=== PATIENT | male | born 1980 | race African-American/Black ===

== ENCOUNTER 2019-12-21 09:44 | Emergency (ER) | payer OTHER, SELFPAY ==
--- NOTE | ~2019-12-21 | XR_ITS ---
EXAMINATION: XR chest 1V portable INDICATION: Right-sided chest pain TECHNIQUE: Portable AP chest at 1012 hours COMPARISON: None available FINDINGS: The lungs are free of acute opacities. There is no pleural effusion or pneumothorax. The ca rdiomediastinal silhouette is normal. IMPRESSION: 1. No acute cardiopulmonary abnormality. Reviewed, dictated and finalized at location A.
--- NOTE | ~2019-12-21 | CT_ITS ---
EXAMINATION: CTA chest PE protocol DATE: 12/21/2019 11:28 INDICATION: Chest pain. Shortness of breath. TECHNIQUE: Computed tomography angiography (CTA) of the chest was performed with 100 mL Omnipaque-350 intravenous contrast timed to evaluate the pulmonary arteries. Coronal maximum intensity projection 3D-reconstructions were created by the technologist. Automated exposure control and iterative reconst ruction technique were employed. The dose-length product was 1099.92 mGy-cm. COMPARISON: None. FINDINGS: There are mild patchy peripheral groundglass and airspace opacities in all lobes with a low er lung predominance. There is a pneumatocele in right lower lobe. No pleural effusion. The heart siz e is normal. No pericardial effusion. There is no pulmonary embolus. There is mild mediastinal and ri ght hilar lymphadenopathy. There is diffuse hepatic steatosis. There is mild thoracic spondylosis. IMPRESSION: 1. No pulmonary embolus. 2. Mild multifocal lung disease, likely atypical pneumonia such as COVID-19 pneumonia. 3. Mild mediastinal and right hilar lymphadenopathy, likely reactive. Reviewed, dictated and finalized at location A. IMPRESSION: 1. No pulmonary embolus. 2. Mild multifocal lung disease, likely atypical pneumonia such as COVID-19 pne umonia. 3. Mild mediastinal and right hilar lymphadenopathy, likely reactive.
--- NOTE | 2019-12-21 09:54 | ECG_ITS ---
Measurements Intervals [place] Rate: 84 P: 48 AK: 151 QRS: 13 QRSD: 81 T: 38 QT: 373 QTc: 441 Interpretive Statements SINUS RHYTHM BASELINE ARTIFACT- II, III, AVR, AVF NORMAL ECG Electronically Signed On 12-21-2019 11:00:38 CDT by Jesus Walker D.O.
[2019-12-21 09:55] VITALS: BP 154/80; PULSE 89; RESP 21; TEMP 36.8; O2SAT 98
[2019-12-21 09:57] VITALS: PULSE 88
[2019-12-21] MEDS: ASPIRIN 81 MG CHEWABLE TABLET 324 MG PO (10:14)
[2019-12-21 10:20] LABS: Basophils Percent Auto 0.5 % (0.2-1.2); Eosinophils Absolute Auto 0.1 K/mm3 (0-0.3); Eosinophils Percent Auto 0.7 % (0-4.4); Hematocrit 38.1 % (42.0-52.0); Hemoglobin 12.4 g/dL (14.0-18.0); Immature Granulocyte Absolute 0.03 K/mm3 (0.00-0.031); Immature Granulocyte Percent A 0.4 % (0-0.5); Lymphocytes Absolute Auto 2.92 K/mm3 (0.9-3.2); Lymphocytes Percent Auto 34.1 % (18.3-44.2); Mean Corpuscular HGB Conc 32.5 g/dl (32-36); Mean Corpuscular Hemoglobin 29.2 pg (26-34); Mean Corpuscular Volume 89.9 fl (80-100); Mean Platelet Volume 9.5 fl (7.4-10.4); Monocytes Absolute Auto 0.5 K/mm3 (0.1-0.6); Monocytes Percent Auto 5.8 % (2.6-8.5); Neutrophils Percent Auto 58.5 % (45.5-73.1); Platelet Count Result 336 k/mm3 (150-375); Red Blood Count 4.24 M/mm3 (4.6-6.20); Red Cell Distribution Width 14.8 % (11.5-14.5); White Blood Count 8.6 K/mm3 (4.5-10.0)
[2019-12-21 10:36] LABS: Partial Thromboplastin Time 31.8 SECONDS (22.3-36.8)
[2019-12-21 10:37] LABS: Anion Gap 7 mmol/L (8-16); Blood Urea Nitrogen 10 mg/dL (9-20); Calcium 8.6 mg/dL (8.4-10.2); Carbon Dioxide 29 mmol/L (22-30); Chloride 105 mmol/L (98-107); Estimated CRCL calculation 131 ml/min; Estimated Glomerular Filt Rate > 60; Glucose 103 mg/dL (75-110); Potassium 3.6 mmol/L (3.4-5.0); Sodium 141 mmol/L (137-145)
[2019-12-21 10:38] LABS: D Dimer 0.67 ug/mL (<0.48)
[2019-12-21 10:49] LABS: Troponin I < 0.012 ng/mL (0.000-0.034)
[2019-12-21 10:57] VITALS: BP 125/79; PULSE 79; RESP 18; O2SAT 98
--- NOTE | 2019-12-21 11:39 | ED.CHESTPAIN ---
HPI - Chest Pain General Chief Complaint: Chest Pain Stated Complaint: chest pain Time Seen by Provider: 12/21/19 10:04 Source: patient Mode of arrival: ambulatory Limitations: no limitations History of Present Illness HPI narrative: Patient is a 39-year-old male who presents with right-sided chest pain and slight dyspnea for the last 2 days patient denies any recent URI symptoms or similar occurrence in the past notes he had felt fine prior to onset of symptoms which have remained constant since the beginning 2 days ago pain does not radiate worse with breathing. Patient notes he has been noncompliant with his lisinopril Related Data Allergies Allergy/AdvReac Type Severity Reaction Status Date / Time No Known Allergies Allergy Verified 12/21/19 10:14 Review of Systems Review of Systems: All systems reviewed & are unremarkable except as noted in HPI and below PMFSH Past Medical History Medical History (Updated 12/21/19 @ 12:42 by Jose Alejandro Wynn PA-C) Hypertension Social History Social History (Updated 12/21/19 @ 11:40 by Jose Alejandro Wynn PA-C) Smoking status: Former smoker Exam Narrative: Exam Narrative: GENERAL: Well-appearing, obese, and in no acute distress. HEAD: Normocephalic, atraumatic. EYES: PERRLA and EOMI. ENT: Nares clear, no rhinorrhea or epistaxis. Mucous membranes moist. Oropharynx without tonsillar hypertrophy exudate or other lesions. NECK: Supple. No adenopathy or masses. No carotid bruits or JVD CHEST: Clear to auscultation. No respiratory distress. No wheezes rales or rhonchi HEART: Regular rate and rhythm. No murmur heard. Normal peripheral pulses. ABDOMEN: Soft, nontender, distended EXTREMITIES: Normal range of motion. No edema. SKIN: Warm, dry, no rash. NEURO: No focal deficits. Alert and oriented x3. Cranial nerves II through XII grossly intact PSYCH: Normal mood and affect. Course Course Emergency Course: Patient's symptoms after evaluation potentially attributable to COVID-19 patient with normal vital signs no hypoxemia nontoxic-appearing will follow with primary care and be managed accordingly no other high risk changes in the blood work or imaging Reevaluation(s) Reevaluation #1: Discussed case with primary care who will follow patient in clinic Date: 12/21/19 Time: 12:41 Vital Signs Vital signs: Vital Signs Temperature 98.2 F 12/21/19 09:55 Pulse Rate 89 12/21/19 09:55 Respiratory Rate 21 H 12/21/19 09:55 Blood Pressure 154/80 H 12/21/19 09:55 Pulse Oximetry 98 12/21/19 09:55 Temperature 98.2 F 12/21/19 09:55 Pulse Rate 78 12/21/19 12:39 Respiratory Rate 18 12/21/19 12:39 Blood Pressure 137/87 12/21/19 12:39 Pulse Oximetry 100 12/21/19 12:39 MDM - Chest Pain Lab Data Result diagrams: 12/21/19 10:09 12/21/19 10:09 Labs: Lab Results 12/21/19 12/21/19 12/21/19 Range/Units 10:09 10:09 10:09 WBC 8.6 (4.5-10.0) K/mm3 RBC 4.24 L (4.6-6.20) M/mm3 Hgb 12.4 L (14.0-18.0) g/dL Hct 38.1 L (42.0-52.0) % MCV 89.9 (80-100) fl MCH 29.2 (26-34) pg MCHC 32.5 (32-36) g/dl RDW 14.8 H (11.5-14.5) % Plt Count 336 (150-375) k/mm3 MPV 9.5 (7.4-10.4) fl Immature Gran % (Auto) 0.4 (0-0.5) % Neut % (Auto) 58.5 (45.5-73.1) % Lymph % (Auto) 34.1 (18.3-44.2) % [place] % (Auto) 5.8 (2.6-8.5) % Eos % (Auto) 0.7 (0-4.4) % Baso % (Auto) 0.5 (0.2-1.2) % Lymph # (Auto) 2.92 (0.9-3.2) K/mm3 [place] # (Auto) 0.5 (0.1-0.6) K/mm3 Eos # (Auto) 0.1 (0-0.3) K/mm3 Baso # (Auto) 0.0 (0.0-0.1) K/mm3 Abs Immat Gran (auto) 0.03 (0.00-0.031) K/mm3 Absolute Neuts (auto) 5.0 (1.3-6.7) K/mm3 Absolute Nucleated RBC 0.0 (0.0-0.012) K/mm3 Nucleated RBC % 0.0 (0.0-0.2) % PT 13.0 (11.1-14.7) Seconds INR 1.0 APTT 31.8 (22.3-36.8) SECONDS D-Dimer 0.67 H (<0.48) ug/mL Sodium 141 (137-145) mmol/L [place]
[2019-12-21 12:39] VITALS: BP 137/87; PULSE 78; RESP 18; O2SAT 100
[2019-12-21 21:12] LABS: SARS-CoV-2 RNA PCR Negative
== END 2019-12-21 13:01 | disposition home or self-care (01) ==
PROVIDERS: Emergency Medicine Emergency Medical Services; Emergency Provider Emergency Medicine; PCP Family Medicine
DX: R07.9 Chest pain, unspecified (principal); Z20.828 Contact with and (suspected) exposure to other viral communicable diseases; Z87.891 Personal history of nicotine dependence; I10 Essential (primary) hypertension
CPT/HCPCS: 36415; 71045; 71275; 80048; 84484; 85025; 85380; 85610; 85730; 87635; 93005; 99284; A9270; C9803; Q9967; U0003

== ENCOUNTER 2022-02-23 06:00 | Emergency (ER) | payer OTHER, SELFPAY ==
--- NOTE | ~2022-02-23 | CT_ITS ---
Non-contrast CT scan of the Abdomen and Pelvis Clinical indication: Left flank pain, hematuria Technique: 5 mm axial scans were obtained through the abdomen and pelvis without intravenous or oral contrast. Dose reduction technique was used on this scan by utilizing automated exposure control and iterative reconstruction technique. The dose-length product (DLP) was 1278.75 mGy-cm. Findings: Images through the lung bases reveal no abnormalities. There is no evidence of renal or ureteral calculi. The kidneys and the ureters are nondilated. Small left renal cyst noted. The liver, spleen, pancreas, gallbladder, and adrenals appear normal. There is no aortic aneurysm. There is no evidence of bowel obstruction. Normal appendix. Images through the pelvis were performed. There is no evidence of ascites or lymphadenopathy. Urinary bladder unremarkable. No pelvic mass seen. Impression: Unremarkable exam. Reviewed, dictated and finalized at location [] K TRANSFER CLERK Impression: Unremarkable exam.
[2022-02-23 06:01] VITALS: BP 137/88; PULSE 107; RESP 20; TEMP 37; O2SAT 100
--- NOTE | 2022-02-23 08:09 | ED.GENADULT ---
HPI - General Adult General Chief complaint: Back Pain/Injury Stated complaint: back pain Time Seen by Provider: 02/23/22 07:56 History of Present Illness HPI narrative: 41-year-old male presented to the emergency department for evaluation of left flank pain that radiates up into his left shoulder. Patient states he has had some hematuria intermittently since September. Patient denies concern for STIs but states he is having some burning with urination. Patient states he did have follow-up with his primary care physician but was unsure what the lab shows. Patient denies any pain with urination. Patient reports last year he did have some biopsies done to rule out cancer and he thinks the results were negative. Patient does take lisinopril for blood pressure. Related Data Allergies Allergy/AdvReac Type Severity Reaction Status Date / Time No Known Allergies Allergy Verified 12/21/19 10:14 Review of Systems Review of Systems: CONSTITUTIONAL: Denies fever, chills, or sweats. EYES: Denies visual changes, redness, or discharge. ENT: Denies rhinorrhea, congestion, sore throat, or otalgia. CARDIOVASCULAR: Denies chest pain, palpitations, or edema. RESPIRATORY: Denies cough or dyspnea. GASTROINTESTINAL: See HPI GENITOURINARY: See HPI SKIN: Denies rash or itching. MUSCULOSKELETAL: Denies back pain, joint pain, or myalgia. NEUROLOGIC: Denies headache, numbness, or weakness. [facility] Past Medical History Medical History (Updated 02/23/22 @ 09:48 by Charles Hazel MD) Hypertension Social History Social History (Updated 12/21/19 @ 11:40 by Jose Alejandro Wynn, PA-C) Smoking status: Former smoker Exam Narrative: APPEARANCE: Well appearing, no pain, no distress, well-nourished. HEAD: normocephalic, atraumatic. EYES: PERRLA/EOMI, conjunctivae clear. NOSE: Normal no drainage EARS:TMS clear with good light reflex. THROAT: Pharynx clear, no exudate. NECK: Supple. No adenopathy, no masses. RESPIRATORY: Airway patent, respirations nonlabored. Clear to auscultation bilaterally, no rales, rhonchi, wheezing. CARDIOVASCULAR: Regular rate and rhythm without murmurs rubs or gallops. ABDOMINAL: Left upper quadrant tenderness to palpation, left CVA tenderness to palpation MUSCULOSKELETAL: Moves all extremities. Strength/ROM intact, No edema, No calf tenderness. NEURO: Alert. Cranial nerves II through XII intact. Grossly intact SKIN: Warm, dry. Normal Color Course Course Emergency Course: Patient is afebrile but does have a leukocytosis of 16.2. Patient does have high bacteria mucus and red blood cells in his urine. Patient was negative for COVID flu and RSV. CT scan was unremarkable. Patient's symptoms and physical exam are suggestive of a urinary tract infection. Patient was provided antibiotics and medications for symptom control. Patient and family were updated on the results of the exam and importance having close follow-up with the primary care physician was stressed. All question concerns were addressed. Vital Signs Vital signs: Vital Signs Temperature 98.6 F 02/23/22 06:01 Pulse Rate 107 H 02/23/22 06:01 Respiratory Rate 20 02/23/22 06:01 Blood Pressure 137/88 02/23/22 06:01 Pulse Oximetry 100 02/23/22 06:01 Oxygen Delivery Room Air 02/23/22 06:01 Temperature 98.6 F 02/23/22 06:01 Pulse Rate 104 H 02/23/22 10:30 Respiratory Rate 20 02/23/22 10:30 Blood Pressure 130/80 02/23/22 10:30 Pulse Oximetry 100 02/23/22 10:30 Oxygen Delivery Room Air 02/23/22 06:01 Medical Decision Making Vital Signs Vital Signs: Vital Signs Temperature 98.6 F 02/23/22 06:01 Pulse Rate 107 H 02/23/22 06:01 Respiratory Rate 20 02/23/22 06:01 Blood Pressure 137/88 02/23/22 06:01 Pulse Oximetry 100 02/23/22 06:01 Oxygen Delivery Room Air 02/23/22 06:01 Temperature 98.6 F 02/23/22 06:01 Pulse Rate 104 H 02/23/22 10:30 Respiratory Rate 20 02/23/22 10:30 Blood Press
[2022-02-23 08:32] LABS: Add Urine Microscopic? YES; Appearance Urine Clear (Clear); Basophils Absolute Auto 0.1 K/mm3 (0.0-0.1); Basophils Percent Auto 0.4 % (0.2-1.2); Bilirubin Urine Negative (Negative); Blood Urine Trace-Intact (Negative); Color Urine Yellow (Yellow); Eosinophils Absolute Auto 0.3 K/mm3 (0-0.3); Eosinophils Percent Auto 1.7 % (0-4.4); Glucose Urine UA Negative (Negative); Hematocrit 44.6 % (42.0-52.0); Hemoglobin 14.3 g/dL (14.0-18.0); Immature Granulocyte Absolute 0.05 K/mm3 (0.00-0.031); Immature Granulocyte Percent A 0.3 % (0-0.5); Ketones Urine Trace mg/dL (Negative); Leukocyte Esterase Ur Negative LEU/UL (Negative); Lymphocytes Absolute Auto 4.06 K/mm3 (0.9-3.2); Mean Corpuscular HGB Conc 32.1 g/dl (32-36); Mean Corpuscular Hemoglobin 28.7 pg (26-34); Mean Corpuscular Volume 89.4 fl (80-100); Mean Platelet Volume 9.1 fl (7.4-10.4); Monocytes Absolute Auto 0.8 K/mm3 (0.1-0.6); Monocytes Percent Auto 5.2 % (2.6-8.5); Neutrophils Absolute Auto 10.9 K/mm3 (1.3-6.7); Neutrophils Percent Auto 67.4 % (45.5-73.1); Nitrate Urine Negative (Negative); Platelet Count Result 463 k/mm3 (150-375); Protein Urine Trace mg/dL (Negative); Red Blood Count 4.99 M/mm3 (4.6-6.20); Red Cell Distribution Width 14.6 % (11.5-14.5); Specific Grav Ur 1.025 (1.001-1.035); Urobilinogen Urine 0.2 mg/dL (<2.0); White Blood Count 16.2 K/mm3 (4.5-10.0)
[2022-02-23 08:56] LABS: Bacteria Urine 1+ /hpf; Mucus Urine Few /lpf; Squamous Epithelial Cell Urine Rare /hpf (Few); WBC Urine 0-3 /hpf
[2022-02-23 09:02] LABS: Alanine Aminotransferase 24 U/L (6-50); Albumin Level 4.9 g/dL (3.5-5.1); Alkaline Phosphatase 77 U/L (38-126); Anion Gap 8 mmol/L (8-16); Aspartate Amino Transferase 20 U/L (17-59); Bilirubin,Total 0.5 mg/dL (0.2-1.3); Blood Urea Nitrogen 11 mg/dL (9-20); Calcium 9.4 mg/dL (8.4-10.2); Carbon Dioxide 30 mmol/L (22-30); Chloride 101 mmol/L (98-107); Estimated CRCL calculation 142 ml/min; Estimated Glomerular Filt Rate > 60; Glucose 90 mg/dL (65-110); Potassium 3.8 mmol/L (3.4-5.0); Sodium 139 mmol/L (137-145)
[2022-02-23 09:07] LABS: Influenza A QL RT-PCR Negative (Negative); Influenza B QL RT-PCR Negative (Negative); RSV RNA, RT-PCR Negative (Negative); SARS-CoV-2 RNA PCR Negative
[2022-02-23] MEDS: HYDROmorphone HCL INJ (*CRX) 1 MG/ML SYR 0.5 MG IM (09:09)
[2022-02-23] MEDS: CEPHALEXIN 250 MG CAPSULE PO (10:08)
[2022-02-23 10:30] VITALS: BP 130/80; PULSE 104; RESP 20; O2SAT 100
== END 2022-02-23 10:30 | disposition home or self-care (01) ==
PROVIDERS: Emergency Provider Emergency Medicine; PCP Family Medicine
DX: N39.0 Urinary tract infection, site not specified (principal); R10.9 Unspecified abdominal pain; Z20.822 Contact with and (suspected) exposure to COVID-19; I10 Essential (primary) hypertension; Z87.891 Personal history of nicotine dependence
CPT/HCPCS: 36415; 74176; 80053; 81001; 85025; 87491; 87591; 87637; 96372; 99284; A9270; J1170

== ENCOUNTER 2022-05-26 07:15 | Emergency (ER) | payer OTHER, SELFPAY ==
--- NOTE | ~2022-05-26 | CT_ITS ---
Non-contrast Head CT History: Headache Technique: Axial non-contrast imaging of the brain was performed. Dose reduction technique was used on this scan by utilizing automated exposure control and iterative reconstruction technique. The dose -length product (DLP) was 681.00 mGy-cm. Findings: There is no evidence of intracranial hemorrhage, mass lesion, or acute infarct. Brain par enchyma appears normal. The ventricles and subarachnoid spaces are normal in size. The calvarium ap pears normal. The visualized paranasal sinuses and mastoid air cells are clear. Impression: No significant abnormality seen. Reviewed, dictated and finalized at location . Impression: No significant abnormality seen.
[2022-05-26 07:26] VITALS: BP 148/97; PULSE 83; RESP 16; TEMP 37.6; O2SAT 98
[2022-05-26] MEDS: diazePAM (*CRX) 5 MG TABLET 10 MG PO (08:19)
--- NOTE | 2022-05-26 08:36 | ED.HA ---
HPI - Headache General Chief Complaint: Headache Stated Complaint: headache Time Seen by Provider: 05/26/22 08:04 Source: patient and RN notes reviewed Mode of arrival: ambulatory Limitations: no limitations History of Present Illness HPI Narrative: This is a 41 year old male with history of hypertension who presents for headache. He states that he has been up all night playing video games. Approximately 45 minutes ago, he developed sharp pain to back of his head at base of his neck. He also reports frontal headache. His pain is worse with turning his head. He has not taken any medication for pain. He denies numbness, tingling, nausea, vomiting or double vision . He denies history of headaches. He rates his headache 12/15. He denies photophobia Related Data Allergies Allergy/AdvReac Type Severity Reaction Status Date / Time No Known Allergies Allergy Verified 12/21/19 10:14 Review of Systems Review of Systems: All systems reviewed & are unremarkable except as noted in HPI and below Constitutional: Constitutional: Denies chills, Denies fatigue and Denies fever(s) Eyes: Eyes: Denies change in vision and Denies photophobia ENT: Reports nasal congestion and Reports sore throat Cardiovascular: Cardiovascular: Denies chest pain Gastrointestinal: Gastrointestinal: Denies abdominal pain, Denies bloating, Denies nausea and Denies vomiting Neurologic: Reports headache(s), Denies focal weakness and Denies numbness PMFSH Past Medical History Medical History Hypertension Social History Social History Smoking status: Former smoker Exam Const: General: no acute distress and alert Nutritional Appearance: obese Orientation/consciousness: patient oriented x3 Limitations: no limitations HENMT: Head: normal to inspection Ears: external ears normal and TM's normal bilaterally Face/Nose/Sinus: Normal external nose present Face and sinus: normal facial exam and sinuses nontender Mouth: Yes Normal oral and palatal mucosa present and Yes lip normal Teeth and gingiva: dentition normal Throat: posterior oropharynx normal and uvula midline Eyes: Conjunctivae: conjunctivae normal Pupils: Equal, round and reactive pupils present EOM: EOMs intact bilaterally Direct Ophthalmoscopy: no photophobia Neck: Neck: normal visual inspection, no lymphadenopathy and no meningeal signs Chest: Chest palpation & inspection: normal inspection of the chest Resp: Effort & Inspection: normal respiratory effort Auscultation: clear to auscultation bilaterally Cardio: Rate: regular rate Rhythm: regular rhythm Heart sounds: no murmurs GI: GI Palp: Yes Soft to palpation, No Tenderness to palpation present (GI), No Guarding due to palpation present (GI) and No Rigid due to palpation Auscultation: normal bowel sounds Back/Spine/Pelvis: Cervical Spine: cervical muscular tenderness and pain with cervical ROM Skin: General skin exam: normal color Rashes: no rashes Wounds: no wounds Neuro: General: patient oriented x3, moves all extremities and CN's II-XI intact bilaterally Cranial nerves: Yes Nystagmus not present Speech: normal speech Gait exam (Neuro): Normal gait present Extrem: General: normal to inspection Psych: Mental Status: mental status grossly normal Affect: normal affect Attitude: cooperative Course Reevaluation(s) Reevaluation #1: Patient states his headache is improved although he still has headache. I discussed with patient that CT is 90-95% sensitive. I discussed labs and lumbar puncture . He does not want to pursue at this point but he will follow up with his PCP. He is no acute distress, no meningismus. I think it is unlikely meningitis vs SAH. Date: 05/26/22 Time: 10:01 Vital Signs Vital signs: Vital Signs Temperature 99.6 F 05/26/22 07:26 Pulse Rate 83 05/26/22 07:26 Respiratory Rate 16
[2022-05-26] MEDS: KETOROLAC (*BKC) 60 MG/2 ML VIAL IM (09:40)
[2022-05-26 10:20] VITALS: BP 120/80; PULSE 70; RESP 12; O2SAT 100
== END 2022-05-26 10:22 | disposition home or self-care (01) ==
PROVIDERS: Emergency Provider General Practice; PCP Family Medicine
DX: R51.9 Headache, unspecified (principal)
CPT/HCPCS: 70450; 96372; 99284; A9270; J1885